=== PATIENT | female | born 2000 | race Two or more races ===

== ENCOUNTER 2019-06-06 16:59 | Emergency (ER) | payer MEDICAID ==
[~2019-06-06] VITALS: Ht 167.6 cm; Wt 102.5 kg
[~2019-06-06 16:59] MED LIST: AUGMENTIN 875-1 EAC1 ORAL; CIPROFLOXACIN500 M2 ORAL; IBUPROFEN600 MG ORAL; NKM; PENICILLIN V P500 MG PO; PREDNISOLO15 MG/5 M1 ORAL; ZOFRAN4 MG ORAL
--- NOTE | 2019-06-06 17:31 | NUR ---
ED Nurse Note: walked in to ED due to twisted left ankle yesterday. ambulatory with steady gait. AAO x4. respirations even and non-labored noted. will wait for the further order.
--- NOTE | 2019-06-06 18:11 | Emergency Room Report ---
History of Present Illness General Chief Complaint: Lower Extremity Injury Source: Patient Present Illness HPI 19-year-old female with no significant past medical history here complaining of pain and swelling in the left ankle x1 week. Patient reports that a month ago she twisted her ankle twice and she twisted her ankle again 1 week ago wearing high heels. Rating the pain 7 out of 10 without radiation. Denying tingling or numbness. Has not taken any medication for her pain. Has not been icing or heating the affected area. Patient has been applying a lot of pressure to her feet and wearing high heels constantly. Denies calf tenderness, chest pain, shortness of breath, palpitation, abdominal pain, nausea or vomiting. Allergies: Coded Allergies: NO KNOWN ALLERGIES (Unverified Allergy, Unknown, 11/14/15) Patient History Past Medical History: see triage record Past Surgical History: unable to obtain Pertinent Family History: none Last Menstrual Period: 4 months--deposhot Now: No Immunizations: UTD Reviewed Nursing Documentation: PMH: Agreed; PSxH: Agreed Nursing Documentation-PMH Past Medical History: No History, Except For Review of Systems All Other Systems: negative except mentioned in HPI Physical Exam Vital Signs Date Time Temp Pulse Resp B/P (MAP) Pulse Ox O2 Delivery O2 Flow Rate FiO2 06/06/19 17:14 98.2 69 20 101/55 (70) 99 Room Air Sp02 EP Interpretation: reviewed, normal General Appearance: normal inspection, well appearing, no apparent distress Head: normocephalic, atraumatic Eyes: bilateral eye normal inspection, bilateral eye PERRL ENT: normal ENT inspection, normal pharynx Neck: normal inspection, full range of motion, supple Respiratory: normal inspection, chest non-tender, lungs clear, no rhonchi, no wheezing Cardiovascular #1: normal inspection, regular rate, rhythm, no edema, no gallop , no murmur, normal capillary refill Cardiovascular #2: 2+ dorsalis pedis (R), 2+ dorsalis pedis (L) Gastrointestinal: normal inspection, non tender, soft Rectal: deferred Genitourinary: no CVA tenderness Musculoskeletal: back normal, gait/station normal, swelling - Left lateral malleolus. Negative Rocha sign Neurologic: normal inspection, alert, oriented x3, responsive, sensory intact Psychiatric: normal inspection, judgement/insight normal, memory normal Skin: no rash Lymphatic: normal inspection, no adenopathy Procedures Splinting Splinting : Consent: Verbal Location: Left ankle Splint: poserior short Pre-Proc Neuro Vasc Exam: normal Post-Proc Neuro Vasc Exam: normal Patient Tolerated: Well Complications: None Medical Decision Making PA Attestation Diagnosis and treatment plans were reviewed and discussed with my supervising physician Dr. Singh Diagnostic Impression: Primary Impression: Fracture of posterior process of talus ER Course 19-year-old female with no significant past medical history here complaining of pain and swelling in the left ankle x1 week. Patient reports that a month ago she twisted her ankle twice and she twisted her ankle again 1 week ago wearing high heels. Rating the pain 7 out of 10 without radiation. Denying tingling or numbness. Has not taken any medication for her pain. Has not been icing or heating the affected area. Patient has been applying a lot of pressure to her feet and wearing high heels constantly. Denies calf tenderness, chest pain, shortness of breath, palpitation, abdominal pain, nausea or vomiting. Ddx considered but are not limited to: ankle sprain, ankle strain, ankle fracture, ankle contusion Vital signs: are WNL, pt. is afebrile H&PE are most consistent with: Fracture of posterior process of talus ORDERS: Left ankle x-ray, naproxen ED INTERVENTIONS: Crutches and posterior short leg splint Splint was ordered, extremity was vascularly and neurovascularly intact after splint was applied. pt advised to follow up with pcp and further imaging may be needed. DISCHARGE: At this time pt. is stable for d/c to home. Will provide printed patient care instructions, and any necessary prescriptions. Care plan and follow up instructions have been discussed with the patient prior to discharge. I advised the patient to follow-up with primary care provider also gave her a list of orthopedic facilities that she could contact as to follow with photogrammetric compilation specialist for possible casting versus further assessment. Other X-Ray Diagnostic Results Other X-Ray Diagnostic Results : X-Ray ordered: left ankle # of Views/Limited Vs Complete: 3 View Indication: Pain EP Interpretation: Yes PA Xray: Interpretation reviewed, by supervising MD, and agrees with findings. Interpretation: no dislocation, other - posterior talus fx Impression: Other - posterior talus fx Electronically Signed by: Nahal Saheli PA-C Last Vital Signs Date Time Temp Pulse Resp B/P (MAP) Pulse Ox O2 Delivery O2 Flow Rate FiO2 06/06/19 17:14 98.2 69 20 101/55 (70) 99 Room Air Disposition: HOME, SELF-CARE Condition: Stable Scripts Naproxen* (NAPROXEN*) 500 Mg Tablet 500 MG ORAL TWICE A DAY, #30 TAB Prov: Prasanna Kidd 06/06/19 Referrals: [facility]ERR[facility] (PCP) Patient Instructions: Ankle Fracture, [id number] Additional Instructions: Follow-up with primary care provider and also photogrammetric compilation specialist keep splint on. Avoid wearing high heels. Keep affected area elevated take medication as directed alternate between icing and heating. Prasanna Kidd Jun 06, 2019 18:11
[2019-06-06] MEDS ORDERED: NAPROXEN500 M2 ORAL (18:12)
[2019-06-06 18:51] VITALS: BP 101/55
--- NOTE | 2019-06-06 18:52 | NUR ---
ER DISCHARGE NOTE: Patient is cleared to be discharged per ERMD with mom, pt is aox4, on room air, with stable vital signs. pt was given dc and prescription instructions, pt was able to verbalize understanding, pt id band removed without complications. pt is able to ambulate with steady gait. pt took all belongings.
--- NOTE | 2019-06-07 10:11 | Diagnostic Imaging Report ---
Indication: Pain, trauma Technique: 3 views of the left ankle Comparison: none Findings: Slightly irregular ossific density projected posterior to the talus on the lateral view probably represents an accessory ossicle although a fracture fragment cannot be completely excluded. No other evidence of acute fracture or dislocation. The joint spaces are preserved. Impression: Doubt acute process. Small posterior talar fracture fragment not completely excludable and clinical correlation advised This agrees with the preliminary interpretation provided by the emergency room physician
== END 2019-06-06 19:53 | disposition home or self-care (01) ==
LOC: EMR 17:15
DX: S92.132A Displaced fracture of posterior process of left talus, initial encounter for closed fracture (principal); X50.1XXA Overexertion from prolonged static or awkward postures, initial encounter; Y92.9 Unspecified place or not applicable
CPT/HCPCS: 29515; 99283